=== PATIENT | female | born 1955 | race Caucasian/White ===

== ENCOUNTER 2023-10-10 15:01 | Emergency (ER) | payer MEDICARE, SELFPAY ==
--- NOTE | 2023-10-10 | ECG_ITS ---
Test Reason : WEAKNESS Blood Pressure : / mmHG Vent. Rate : 065 BPM Atrial Rate : 065 BPM P-R Int : 154 ms QRS Dur : 078 ms QT Int : 420 ms P-R-T Axes : 069 029 049 degrees QTc Int : 436 ms Normal sinus rhythm Low voltage QRS Borderline ECG No previous ECGs available Referred By: Generic ED Physician Electronically Signed By:KAE BUCHANAN
[2023-10-10 15:12] VITALS: BP 97/45; BP 99/60; PULSE 66; PULSE 85; RESP 16; TEMP 36.9; O2SAT 100; O2SAT 95; BMI 33.6
[2023-10-10 15:38] LABS: Basophils Percent Auto 0.2 % (0-2); Eosinophils Percent Auto 0.2 % (0-4); Hematocrit 32.9 % (37.0-47.0); Hemoglobin 11.6 g/dl (12.0-16.0); Imm Gran Abs Auto 0.15 X10*3/uL (0.00-0.03); Imm Gran Pct Auto 1.2 % (0.0-0.4); Lymphocytes Absolute Auto 1.3 X10*3/uL (1.2-4.9); Lymphocytes Percent Auto 10.2 % (20-40); MANUAL DIFF FLAG SCAN; Mean Corpuscular HGB Conc 35.3 g/dl (31.0-35.0); Mean Corpuscular Hemoglobin 30.3 pg (27.0-33.0); Mean Corpuscular Volume 85.9 fL (80.0-98.0); Mean Platelet Volume 9.7 fL (9.4-12.3); Monocytes Absolute Auto 1.2 X10*3/uL (0.1-1.2); Monocytes Percent Auto 9.1 % (2-11); Neutrophils Absolute Auto 10.2 x10*3/uL (2.0-8.3); Neutrophils Percent Auto 79.1 % (45-73); PLT CLUMP 1; Red Blood Count 3.83 X10*6/uL (4.20-5.50); Red Cell Distribution Width 12.7 % (11.0-16.0); SCAN SMEAR FLAG 1
[2023-10-10 15:56] LABS: Alanine Aminotransferase 27 U/L (0-31); Albumin Level 3.1 g/dL (3.5-5.0); Alkaline Phosphatase 56 U/L (39-117); Anion Gap 12 (12-20); Aspartate Amino Transferase 33 U/L (5-31); Bilirubin Total 0.5 mg/dL (0.0-1.0); Blood Urea Nitrogen 36 mg/dL (9-16); Calcium 8.9 mg/dL (8.4-10.2); Carbon Dioxide 22 mmol/L (22-29); Chloride 97 mmol/L (96-108); Estimated Glomerular Filt Rate 37; Glucose Random 98 mg/dL (60-115); Lipase 24 U/L (8-78); Potassium 3.1 mmol/L (3.3-5.1); Sodium 128 mmol/L (135-145); Total Protein 7.8 g/dL (6.5-8.0)
[2023-10-10 16:00] LABS: B Type Natriuretic Peptide 46 pg/mL (<100)
[2023-10-10 16:01] LABS: Platelet Count 449 X10*3/uL (160-400); White Blood Count 12.9 X10*3/uL (4.8-10.8)
[2023-10-10 16:02] LABS: SLIDE REVIEW VERIFIED
[2023-10-10 16:03] LABS: Troponin-I High Sensitivity 13.1 ng/L (<3.5-17.0)
[2023-10-10] MEDS: 0.9 % Sodium Chloride 1,000 ML 999 ML IV (16:22)
[2023-10-10] MEDS: Potassium Chloride ER 20 MEQ TAB.ER.PRT PO (16:22)
--- NOTE | 2023-10-10 16:23 | PC.NURSE ---
IVF/medication administered per provider order.
--- NOTE | 2023-10-10 16:32 | ED_ITS ---
HPI - General Adult General Chief complaint: Weakness Stated complaint: LOW BP 70/50 FROM PCP OFF PER EMS Time Seen by Provider: 10/10/23 15:26 History of Present Illness HPI narrative: 67 years old with history of hypertension, presents emergency room for low blood pressure, and weakness for the past 10 days. Patient reports that she recently got kittens and since then she is being having episodes of dark diarrhea and that she has been very weak. Patient denies however vomiting, reports that she has not been eating much because of lack of appetite. Denies abdominal pain, reports dark green stools . However the patient over the past 10 days is being having episodes of shortness of breath on exertion without chest pain. Patient denies trauma, no headache, blurry vision, slurred speech. On arrival patient does not appear in distress per EMS her initial blood pressure was 70/50 improved after 500 mL of normal saline to 99/60. Related Data Allergies Allergy/AdvReac Type Severity Reaction Status Date / Time aspirin [From Percodan] Allergy Unknown Verified 10/10/23 15:14 bee pollen [bee stings] Allergy Hives Verified 10/10/23 15:14 oxycodone [From Percodan] Allergy Unknown Verified 10/10/23 15:14 Review of Systems 2 Review of Systems: Yes all other systems are reviewed and are negative PMFSH Social History Social History Smoked in Last 30 Days: No Use of substances other than those prescribed or required for medical reasons: No Advance Directives: No Advance Directives Information Provided: No Do you have a plan to hurt others: No Plan Physical Exam ED Vital Signs: Vital Signs - 24 hr 10/10/23 15:12 10/10/23 17:47 Temperature 98.5 F 98.0 F Pulse Rate 66 63 Respiratory Rate 16 16 Blood Pressure 97/45 L 127/63 Pulse Oximetry 95 96 Oxygen Delivery Method Room Air Room Air BMI result Body Mass Index 33.6 General: Alert, Not in Distress Skin: No rash, warm HEENT: Atraumatic, No Exudate or Pharyngeal Erythema Resp: Normal Breath sounds bilaterally Cardio: Regular rate and Rhythm, Normal S1, S2 ABD: Abd soft, non tender, no guarding or rebound. Normal Bowel sounds. rectal: normal tone, brown stools, FOB negative : No cva tenderness Neuro: Alert, oriented x4, PERRL Strenght 5/5 on all extremities Sensation is preserved in both lower and upper extremities Index to nose: normal Cranial Nerves II-XII grossly intact No dysarthria, or aphasia No neglet. Visual cameron are normal bilaterally Psych: Cooperative, NO SI Course Reevaluation(s) Reevaluation #1: Patient tolerated p.o.. I personally reviewed the patient's lab work that showed mild elevation of creatinine likely secondary to dehydration. In consideration of negative FOBT, no episodes of melena reported and no episodes of lower or upper GI bleed in the emergency room I have low suspicion for GI bleed. Patient blood pressure has remained stable throughout her stay in the emergency room and at this time I do not think she requires admission. Will DC home Recommended oral hydration and recheck creatinine in a week with PCP Return precautions discussed at bedside with patient and daughter. Patient okay with plan. Time: 18:15 Medications Administered Discontinued Medications Generic Name Dose Route Start Last Admin Trade Name Freq PRN Reason Stop Dose Admin Sodium Chloride 1,000 mls @ 999 mls/hr 10/10/23 15:45 10/10/23 17:55 Ns IV 10/10/23 16:45 Infused .Q1H1M KEVIN Infusion Potassium Chloride 20 meq 10/10/23 16:06 10/10/23 16:22 Potassium Chloride Er 20 Meq Tab.Er.Prt PO 10/10/23 16:07 20 meq ONCE ONE Administration Medical Decision Making Medical Decision Making [facility] Narrative: Presented to the emergency room for what it looks like possible weakness, dehydration secondary to possible viral infection however the fact that patient had dark stools and shortness of breath makes me concern symptoms may be related to GI bleed however patient does not negative FOBT, no episodes of melena at home, was able to look at a picture that patient to cover stools and look dark green and not melanotic. Plan: CBC, BMP EKG BNP symptoms appear to improved after IV fluids which makes me think unlikely to be CHF. Lab Data [facility] Lab Attestation statement: I reviewed the patient's lab results. Mild ELAINE 10/10/23 15:22 10/10/23 15:22 Labs: Lab Results 10/10/23 Range/Units 15:22 WBC 12.9 H (4.8-10.8) X10*3/uL RBC 3.83 L (4.20-5.50) X10*6/uL Hgb 11.6 L (12.0-16.0) g/dl Hct 32.9 L (37.0-47.0) % MCV 85.9 (80.0-98.0) fL MCH 30.3 (27.0-33.0) pg MCHC 35.3 H (31.0-35.0) g/dl RDW 12.7 (11.0-16.0) % Plt Count 449 H (160-400) X10*3/uL MPV 9.7 (9.4-12.3) fL Immature Gran % (Auto) 1.2 H (0.0-0.4) % Neut % (Auto) 79.1 H (45-73) % Lymph % (Auto) 10.2 L (20-40) % Bailey % (Auto) 9.1 (2-11) % Eos % (Auto) 0.2 (0-4) % Baso % (Auto) 0.2 (0-2) % Lymph # (Auto) 1.3 (1.2-4.9) X10*3/uL Bailey # (Auto) 1.2 (0.1-1.2) X10*3/uL Eos # (Auto) 0.0 (0.0-0.4) X10*3/uL Baso # (Auto) 0.0 (0.0-0.2) X10*3/uL Abs Immat Gran (auto) 0.15 H (0.00-0.03) X10*3/uL Absolute Neuts (auto) 10.2 H (2.0-8.3) x10*3/uL Absolute Nucleated RBC 0.000 (0.0-0.012) X10*3/uL Nucleated RBC % (auto) 0.0 (0.0-0.2) /100WBC Smear Tech's Comments VERIFIED Sodium 128 L (135-145) mmol/L Potassium 3.1 L (3.3-5.1) mmol/L Chloride 97 (96-108) mmol/L Carbon Dioxide 22 (22-29) mmol/L Anion Gap 12 (12-20) BUN 36 H (9-16) mg/dL Creatinine 1.42 H (0.5-1.4) mg/dL Estim Creat Clear Calc 36.0 Estimated GFR 37 Random Glucose 98 (60-115) mg/dL Calcium 8.9 (8.4-10.2) mg/dL Total Bilirubin 0.5 (0.0-1.0) mg/dL AST 33 H (5-31) U/L ALT 27 (0-31) U/L Alkaline Phosphatase 56 (39-117) U/L Troponin I High Sens 13.1 (<3.5-17.0) ng/L B-Natriuretic Peptide 46 (<100) pg/mL Total Protein 7.8 (6.5-8.0) g/dL Albumin 3.1 L (3.5-5.0) g/dL Lipase 24 (8-78) U/L Independent Interpretation I performed an independent interpretation of an: EKG (I personally reviewed and interpreted the patient's EKG that shows normal sinus rhythm) Discharge Plan Discharge Clinical Impression: Dehydration, ELAINE (acute kidney injury), Acute hypokalemia Patient Disposition: Home, Self-Care Instructions: Acute Kidney Injury (DC) Additional Instructions: You were seen in the emergency room for low blood pressure. Your symptoms are consistent with dehydration likely secondary to viral syndrome. We recommend to drink at least 1-1/2-2 L of water per day. Your blood work showed a creatinine 1.46 with a potassium of 3.1. Please follow-up in a week with your primary care physician to repeat his blood work. Presents to the emergency room if you experience abdominal pain, fever or if you notice no urination for more than 12 hours consecutively despite drinking an appropriate amount of water. Print Language: Swedish
[2023-10-10 17:47] VITALS: BP 127/63; PULSE 63; RESP 16; TEMP 36.7; O2SAT 96
--- NOTE | 2023-10-10 17:51 | PC.NURSE ---
BP continues to improve s/p IVF infusion. swabs obtained/sent to lab. pt seen by ED provider/aware of plan of care moving forward.
[2023-10-10 18:34] VITALS: BP 127/63; PULSE 63; RESP 16; TEMP 36.7; O2SAT 96
[2023-10-10 18:37] LABS: Influenza A PCR NEGATIVE (Negative); Influenza B PCR NEGATIVE (Negative); Resp Syncy Virus RNA Qual PCR NEGATIVE (Negative); SARS COV2 PCR INHOUSE NEGATIVE (Negative)
== END 2023-10-10 18:34 | disposition home or self-care (01) ==
PROVIDERS: Emergency Provider Student in an Organized Health Care Education/Training Program; PCP Nurse Practitioner Family
DX: N17.9 Acute kidney failure, unspecified (principal); E86.0 Dehydration; E87.6 Hypokalemia; I10 Essential (primary) hypertension; Z11.52 Encounter for screening for COVID-19
CPT/HCPCS: 0241U; 36415; 80053; 83690; 83880; 84484; 85025; 93005; 96360; 96361; 99284; 99285

== ENCOUNTER → 2023-10-10 15:16 | Outpatient (BNV) | payer MEDICARE, SELFPAY | PROVIDERS: Emergency Provider Student in an Organized Health Care Education/Training Program; PCP Nurse Practitioner Family; Visit Provider Internal Medicine | DX: R53.1 Weakness (principal) | CPT/HCPCS: 93010 ==

== ENCOUNTER 2023-11-06 08:11 | Emergency (ER) | payer MEDICARE, MEDICAID, SELFPAY ==
--- NOTE | 2023-11-06 | ECG_ITS ---
Test Reason : WEAKNESS Blood Pressure : / mmHG Vent. Rate : 069 BPM Atrial Rate : 069 BPM P-R Int : 158 ms QRS Dur : 076 ms QT Int : 404 ms P-R-T Axes : 052 025 052 degrees QTc Int : 432 ms Normal sinus rhythm Normal ECG When compared with ECG of 10-OCT-2023 15:16, No significant change was found Referred By: Silvio Grady Electronically Signed By:Edy Miller
--- NOTE | ~2023-11-06 | CT_ITS ---
EXAMINATION: CT ABDOMEN AND PELVIS WITH CONTRAST CLINICAL INFORMATION: Abdominal pain COMPARISON: None available. TECHNIQUE: Multidetector volumetric images were obtained from the superior aspect of the liver through the pubic symphysis following administration 85 mL of Omnipaque 350 intravenous contrast. Sagittal and coronal reformatted images were obtained on the technologist's workstation. Oral contrast: No This CT examination was performed using dose optimization techniques as appropriate, variously including the following: *Automated exposure control *Adjustment of mA and/or kV according to patient size (this includes techniques or standardized protocols for targeted exams where dose is matched to indication/reason for exam; i.e. extremities or head) *Use of iterative reconstruction technique DLP: 538 mGy-cm FINDINGS: Visualized lung bases demonstrate mild dependent atelectasis. The liver is normal in size but demonstrates diffusely decreased attenuation. The gallbladder is normal in appearance. The pancreas, spleen and adrenal glands are unremarkable. Symmetrically enhancing kidneys. There is no hydronephrosis of either kidney. A few subcentimeter renal hypodensities are too small to accurately characterize but statistically cysts. Mild bilateral perinephric stranding, nonspecific. Small hiatal hernia. Stomach is relatively decompressed. Normal caliber loops of small and large bowel. Normal appendix. Normal caliber abdominal aorta demonstrating severe atherosclerotic disease. No retroperitoneal lymphadenopathy. Tiny fat-containing umbilical hernia. The bladder is normal in appearance. Unremarkable CT appearance of the uterus. No gross free pelvic fluid. Diffuse osteopenia. Scoliotic and degenerative changes of the spine. CT/CT abdomen pelvis w IV con IMPRESSION: 1. Diffusely decreased liver attenuation suggesting hepatic steatosis. Correlation with liver enzymes recommended. 2. Small hiatal hernia. Fleischner guidelines were followed.
--- NOTE | ~2023-11-06 | CT_ITS ---
EXAMINATION: CT head/brain wo IV con CLINICAL INFORMATION: Reason for Exam dizziness COMPARISON: None. TECHNIQUE: Contiguous axial imaging was performed from the skull base to vertex without intravenous contrast. Sagittal and coronal reformatted images were obtained. This CT examination was performed using dose optimization techniques as appropriate, variously including the following: * Automated exposure control * Adjustment of mA and/or kV according to patient size (this includes techniques or standardized protocols for targeted exams where dose is matched to indication/reason for exam; i.e. extremities or head) Use of iterative reconstruction technique DLP: 584.77 mGy-cm mGy-cm FINDINGS: No acute osseous or soft tissue abnormality. The mastoid air cells and visualized portions of the paranasal sinuses are well aerated. There is no evidence of acute intracranial hemorrhage or territorial infarction. No abnormal mass effect or midline shift is seen. Calderon to white matter differentiation is well preserved. No extra-axial fluid collections are identified. No hydrocephalus. CT/CT head/brain wo IV con IMPRESSION: 1. No acute intracranial abnormality.
[2023-11-06 08:16] VITALS: BP 100/60; PULSE 95; O2SAT 96
[2023-11-06 08:22] VITALS: BP 111/54; PULSE 79; RESP 16; O2SAT 92; BMI 28.3
--- NOTE | 2023-11-06 08:29 | ED.GENADULT ---
HPI - General Adult General Chief complaint: Dizziness Stated complaint: DIZZINESS BLURRED VISION Time Seen by Provider: 11/06/23 08:24 Source: patient and family Mode of arrival: EMS Limitations: no limitations History of Present Illness HPI narrative: This is a 68 years old the patient brought in by ambulance with multiple complaints which include the dizziness blurred vision diarrhea also she is complaining of decreased p.o. intake for the last 3 weeks. Denies any fever chills. Onset (ago): day(s) (1) Radiation: non-radiation Severity: moderate Pain Consistency: constant Relieving factors: none Exacerbating factors: none Associated symptoms: loss of appetite and malaise Treatments prior to arrival: none Related Data Allergies Allergy/AdvReac Type Severity Reaction Status Date / Time aspirin [From Percodan] Allergy Unknown Verified 11/06/23 08:22 bee pollen [bee stings] Allergy Hives Verified 11/06/23 08:22 oxycodone [From Percodan] Allergy Unknown Verified 11/06/23 08:22 Review of Systems Constitutional: Constitutional: Reports no additional constitutional complaints Cardiovascular: Cardiovascular: Reports no additional cardiovascular complaints Gastrointestinal: Gastrointestinal: Reports no additional gastrointestinal complaints Musculoskeletal: Musculoskeletal: Reports no additional musculoskeletal complaints [facility] Past Medical History Attestation statement: The following information was validated with the patient. [facility] Narrative: Hypertension Social History Social History Advance Directives: No Advance Directives Information Provided: No Do you have a plan to hurt others: No Plan Physical Exam ED Vital Signs: Vital Signs - 24 hr 11/06/23 08:22 11/06/23 11:35 11/06/23 14:37 Temperature 97.9 F 97.9 F Pulse Rate 79 79 79 Respiratory Rate 16 16 16 Blood Pressure 111/54 L 127/67 127/67 Pulse Oximetry 92 95 95 Oxygen Delivery Method Room Air Room Air Room Air BMI result Body Mass Index 28.3 She looks well she has not toxic she is comfortable in the stretcher Const General: cooperative, comfortable and no acute distress Nutritional Appearance: average body habitus Orientation/consciousness: patient oriented x3 Limitations: no limitations HENMT Head: Yes normal to inspection Throat: Yes posterior oropharynx normal Neck Neck: Yes normal visual inspection and Yes full ROM Chest Chest palpation & inspection: normal inspection of the chest Resp Effort & Inspection: normal respiratory effort Auscultation: clear to auscultation bilaterally Cardio Jugular venous distension: no JVD Rate: regular rate Rhythm: regular rhythm GI Inspection: Yes normal to inspection Palpation (GI): Soft to palpation, not firm and nontender Percussion: Yes normal to percussion Skin General skin exam: no rashes or lesions noted, elasticity normal and turgor normal Lesions: no lesions Rashes: no rashes Trauma: no lacerations or abrasions Neuro General: patient oriented x3 Course Reevaluation(s) Reevaluation #1: Feels better .labs and ct reviwed with daughter and pt Medications Administered Discontinued Medications Generic Name Dose Route Start Last Admin Trade Name Freq PRN Reason Stop Dose Admin Sodium Chloride 1,000 mls @ 999 mls/hr 11/06/23 08:30 11/06/23 09:48 Ns IVCONT 11/06/23 09:30 Infused .Q1H1M KEVIN Infusion Iohexol 100 ml 11/06/23 10:57 11/06/23 10:57 Iohexol 350 Mg/Ml 100 Ml Infus..Btl IV 11/06/23 10:58 85 ml ONCE ONE Administration Medical Decision Making Medical Decision Making [facility] Narrative: Patient presented emergency room with dizziness we will obtain labs imaging and reassess Differential Diagnosis Differential Diagnoses: The differential diagnosis associated with the presentation includes Differential diagnosis is broad and no limited to syndrome, vertigo, gastroenteritis/colitis Admission/Observation Consideration of admission/observation: Escalation of care including admission/observation considered Lab Data MDM Lab Attestation statement: I reviewed the patient's lab results. 11/06/23 08:46 11/06/23 08:46 Labs: Lab Results 11/06/23 11/06/23 Range/Units 08:46 14:31 WBC 10.0 (4.8-10.8) X10*3/uL RBC 4.10 L (4.20-5.50) X10*6/uL Hgb 12.0 (12.0-16.0) g/dl Hct 35.0 L (37.0-47.0) % MCV 85.4 (80.0-98.0) fL MCH 29.3 (27.0-33.0) pg MCHC 34.3 (31.0-35.0) g/dl RDW 12.6 (11.0-16.0) % Plt Count 594 H D (160-400) X10*3/uL MPV 8.5 L (9.4-12.3) fL Immature Gran % (Auto) 1.6 H (0.0-0.4) % Neut % (Auto) 78.9 H (45-73) % Lymph % (Auto) 9.3 L (20-40) % Lipscomb % (Auto) 9.5 (2-11) % Eos % (Auto) 0.3 (0-4) % Baso % (Auto) 0.4 (0-2) % Lymph # (Auto) 0.9 L (1.2-4.9) X10*3/uL Lipscomb # (Auto) 1.0 (0.1-1.2) X10*3/uL Eos # (Auto) 0.0 (0.0-0.4) X10*3/uL Baso # (Auto) 0.0 (0.0-0.2) X10*3/uL Abs Immat Gran (auto) 0.16 H (0.00-0.03) X10*3/uL Absolute Neuts (auto) 7.9 (2.0-8.3) x10*3/uL Absolute Nucleated RBC 0.000 (0.0-0.012) X10*3/uL Nucleated RBC % (auto) 0.0 (0.0-0.2) /100WBC ESR 82 H (0-20) MM/HR Sodium 131 L (135-145) mmol/L Potassium 3.4 (3.3-5.1) mmol/L Chloride 94 L (96-108) mmol/L Carbon Dioxide 23 (22-29) mmol/L Anion Gap 17 (12-20) BUN 29 H (9-16) mg/dL Creatinine 1.66 H (0.5-1.4) mg/dL Estim Creat Clear Calc 27.8 Estimated GFR 31 Random Glucose 98 (60-115) mg/dL Calcium 9.4 (8.4-10.2) mg/dL Total Bilirubin 0.5 (0.0-1.0) mg/dL AST 53 H (5-31) U/L ALT 31 (0-31) U/L Alkaline Phosphatase 58 (39-117) U/L Troponin I High Sens 9.3 (<3.5-17.0) ng/L B-Natriuretic Peptide 23 (<100) pg/mL Total Protein 8.4 H (6.5-8.0) g/dL Albumin 3.2 L (3.5-5.0) g/dL Stool Leukocytes, Qual NEGATIVE (NEGATIVE) C. difficile Tox B Gene NEGATIVE (Negative) Independent Interpretation I performed an independent interpretation of an: EKG Interpretation: NSR [address]-t changes ,the EKG was read and interpreted by me Independent Historian Daughter Discharge Plan Discharge Clinical Impression: Dizziness Diarrhea Qualifiers: Diarrhea type: unspecified type Qualified Code(s): R19.7 - Diarrhea, unspecified Patient Disposition: Home, Self-Care Instructions: Acute Diarrhea (ED), Dizziness (ED) Additional Instructions: Follow-up with your primary care physician return to the emergency room if you worse any concern Referrals: Nakul Lane NP [Primary Care Provider] - 11/08/23 Interventions: ED Discharge Assessment Last Done: 11/06/23 14:37 Discharge Date/Time: 11/06/23 14:37 Print Language: Thai
--- NOTE | 2023-11-06 08:40 | PC.NURSE ---
a&ox4. vss and up to date. nsr on the surgical services coordinator. pt biba from home d/t waking up w/ dizziness/shakes/blurred vision. diarrhea/sob x week/decreased PO intake x 3 weeks. pt verbalizing blurry vision subsided during transport. upon ED arrival - neuros intact. face symmetrical. strength equal bilaterally. 20gIV placed in the left AC - labs obtained/sent to lab. ekg performed by tech. pt seen by ED provider/aware of plan of care moving forward. no sob/wob noted. respirations even/unlabored. family bedside for support. plan of care ongoing. call puga placed within reach.
[2023-11-06] MEDS: 0.9 % Sodium Chloride 1,000 ML 999 ML IVCONT (08:47)
[2023-11-06 08:51] LABS: MANUAL DIFF FLAG NO
[2023-11-06 08:52] LABS: Basophils Percent Auto 0.4 % (0-2); Eosinophils Percent Auto 0.3 % (0-4); Imm Gran Abs Auto 0.16 X10*3/uL (0.00-0.03); Imm Gran Pct Auto 1.6 % (0.0-0.4); Lymphocytes Absolute Auto 0.9 X10*3/uL (1.2-4.9); Lymphocytes Percent Auto 9.3 % (20-40); Mean Corpuscular HGB Conc 34.3 g/dl (31.0-35.0); Mean Corpuscular Hemoglobin 29.3 pg (27.0-33.0); Mean Corpuscular Volume 85.4 fL (80.0-98.0); Mean Platelet Volume 8.5 fL (9.4-12.3); Monocytes Percent Auto 9.5 % (2-11); Neutrophils Absolute Auto 7.9 x10*3/uL (2.0-8.3); Neutrophils Percent Auto 78.9 % (45-73); Platelet Count 594 X10*3/uL (160-400); Red Cell Distribution Width 12.6 % (11.0-16.0)
[2023-11-06 09:09] LABS: Alanine Aminotransferase 31 U/L (0-31); Albumin Level 3.2 g/dL (3.5-5.0); Alkaline Phosphatase 58 U/L (39-117); Anion Gap 17 (12-20); Aspartate Amino Transferase 53 U/L (5-31); Bilirubin Total 0.5 mg/dL (0.0-1.0); Blood Urea Nitrogen 29 mg/dL (9-16); Calcium 9.4 mg/dL (8.4-10.2); Carbon Dioxide 23 mmol/L (22-29); Chloride 94 mmol/L (96-108); Creatinine Clr Calc Pharmacy 27.8; Estimated Glomerular Filt Rate 31; Glucose Random 98 mg/dL (60-115); Potassium 3.4 mmol/L (3.3-5.1); Sodium 131 mmol/L (135-145); Total Protein 8.4 g/dL (6.5-8.0)
[2023-11-06 09:13] LABS: B Type Natriuretic Peptide 23 pg/mL (<100)
[2023-11-06 09:16] LABS: Troponin-I High Sensitivity 9.3 ng/L (<3.5-17.0)
--- NOTE | 2023-11-06 10:43 | PC.NURSE ---
pt to CT at this time.
[2023-11-06] MEDS: iohexoL 350 MG/ML 100 ML INFUS..BTL IV (10:57)
[2023-11-06 11:35] VITALS: BP 127/67; PULSE 79; RESP 16; TEMP 36.6; O2SAT 95
--- NOTE | 2023-11-06 11:36 | PC.NURSE ---
vss and up to date. nsr on the cardiac technologist. pt continues to wait for CT results at this time. plan of care ongoing. call puga placed within reach.
[2023-11-06 14:37] VITALS: BP 127/67; PULSE 79; RESP 16; TEMP 36.6; O2SAT 95
--- NOTE | 2023-11-06 14:37 | PC.NURSE ---
stool sample obtained/sent to lab. pt d/c'd.
[2023-11-06 14:44] LABS: Erythrocyte Sedimentation Rate 82 MM/HR (0-20)
[2023-11-06 15:27] LABS: Leukocytes Stool Qualitative NEGATIVE (NEGATIVE)
[2023-11-06 15:49] LABS: CDiff Gene PCR NEGATIVE (Negative)
[2023-11-07 09:31] LABS: Adenovirus F 40/41 Not Detected (Not Detect.); Astrovirus Not Detected (Not Detect.); Campylobacter Not Detected (Not Detect.); Cryptosporidium Not Detected (Not Detect.); Cyclospora cayetanensis Not Detected (Not Detect.); E. coli EAEC Not Detected (Not Detect.); E. coli EPEC Not Detected (Not Detect.); E. coli ETEC Not Detected (Not Detect.); E. coli STEC Not Detected (Not Detect.); Entamoeba histolytica Not Detected (Not Detect.); Giardia lamblia Not Detected (Not Detect.); Norovirus GI/GII Not Detected (Not Detect.); Plesiomonas shigelloides Not Detected (Not Detect.); Rotavirus A Not Detected (Not Detect.); Salmonella Not Detected (Not Detect.); Sapovirus Not Detected (Not Detect.); Shigella sp./EIEC Not Detected (Not Detect.); Vibrio Not Detected (Not Detect.); Vibrio Cholerae Not Detected (Not Detect.); Yersinia enterocolitica Not Detected (Not Detect.)
== END 2023-11-06 14:37 | disposition home or self-care (01) ==
PROVIDERS: Emergency Provider Emergency Medicine; PCP Nurse Practitioner Family
DX: R42 Dizziness and giddiness (principal); R19.7 Diarrhea, unspecified; H53.8 Other visual disturbances; I10 Essential (primary) hypertension
CPT/HCPCS: 36415; 70450; 74177; 80053; 83880; 84484; 85025; 85652; 87493; 87507; 89055; 93005; 96360; 99284; Q9967

== ENCOUNTER → 2023-11-06 08:37 | Outpatient (BNV) | payer MEDICARE, SELFPAY | PROVIDERS: Emergency Provider Emergency Medicine; PCP Nurse Practitioner Family; Visit Provider Internal Medicine Cardiovascular Disease | DX: R53.1 Weakness (principal) | CPT/HCPCS: 93010 ==